=== PATIENT | male | born 1970 | race Two or more races ===

== ENCOUNTER 2020-08-26 12:46 | Inpatient (IN) | payer OTHER ==
[~2020-08-26] VITALS: Ht 170.2 cm; Wt 70.0 kg
[2020-08-26 12:49] VITALS: Ht 170.2 cm; Wt 70.0 kg
[2020-08-26 13:18] LABS: BASOPHIL % 0.5 % (0-2); PLATELET COUNT 232 x10^3mcL (130-400)
--- NOTE | 2020-08-26 13:27 | NUR ---
PT BIB AMBULANCE C/O "FEELING LIKE IM GOING TO PASS OUT" S/P COLONOSCOPY SINCE LAST MONDAY. PER PT "I HAVE BEEN HAVING LOOSE DARK STOOLS SINCE THE COLONSCOPY". PT DENIES ANY PAIN AT THIS TIME. PT AAOX4. RESP E/U. NO DISTRESS NOTED.
--- NOTE | 2020-08-26 13:30 | NUR ---
XR AT BEDSIDE FOR CXR AT THIS TIME.
[2020-08-26 13:32] LABS: RED CELL DISTRIBUTION WIDTH 14.8 % (11.5-14.5)
[2020-08-26 13:51] LABS: CALCIUM 9.3 mg/dL (8.5-10.1); CARBON DIOXIDE 23.7 mmol/L (21-32); CREATININE SERUM 1.7 mg/dL (0.7-1.3); POTASSIUM SERUM 3.4 mmol/L (3.5-5.1)
[2020-08-26 13:53] LABS: ALBUMIN 3.6 g/dL (3.4-5.0); BILIRUBIN TOTAL 0.3 mg/dL (0.20-1.00); TOTAL PROTEIN, SERUM 5.9 g/dL (6.4-8.2); URIC ACID 6.7 mg/dL (3.5-7.2)
--- NOTE | 2020-08-26 14:18 | NUR ---
DR SEBASTIAN AT BEDSIDE
[2020-08-26] MEDS ORDERED: AMARYL4 MG PO (14:21)
[2020-08-26] MEDS ORDERED: LISINOPRIL40 MG PO (14:21)
[2020-08-26] MEDS ORDERED: EFFER-K10 MEQ PO (14:22)
[2020-08-26] MEDS ORDERED: MICROZIDE12.5 MG PO (14:22)
[2020-08-26] MEDS ORDERED: TRIGLIDE160 M1 PO (14:24)
[2020-08-26] MEDS ORDERED: AZOR 10-20 MG1 EACH PO (14:24)
[2020-08-26] MEDS ORDERED: VASCEPA1 GM PO (14:25)
[2020-08-26] MEDS ORDERED: CENTRUM ADULTS1 EACH (14:25)
[2020-08-26] MEDS ORDERED: ECOTRIN81 M2 (14:26)
--- NOTE | 2020-08-26 15:51 | NUR ---
CALLED REPORT TO MADHU SNIDER TELE
--- NOTE | 2020-08-26 15:53 | NUR ---
CONTACTED RESIDENT ON THE CASE, TO ORDER THE COVID ABILIO AND PLACED ADMIT ORDERS, STATES HE WILL BE PUTTING IN THE ORDERS,
[2020-08-26 16:22] LABS: LIPASE 239 IU/L (73-393); MAGNESIUM 2.1 mg/dL (1.8-2.4)
[2020-08-26 16:31] LABS: CHOLESTEROL 209 mg/dL (<200); CHOLESTEROL/HDL RATIO 6.7; HDL CHOLESTEROL 31 mg/dL (40-60); T3 TOTAL 0.8 ng/mL; TRIGLYCERIDES 776 mg/dL (<150)
[2020-08-26 16:54] LABS: FREE T4 0.95 ng/dL (0.76-1.46); FREE THYROXINE INDEX 2.1 ug/dL (1.4-4.5); T4(THYROXINE) 5.9 ug/dL (4.7-13.3)
--- NOTE | 2020-08-26 16:55 | NUR ---
PT LAYING IN BED, AAOX4, NO ACUTE DISTRESS NOTED, DENIES PAIN AT THIS TIME, WILL CONTINUE TO MONITOR. PENDING MAGUI KNOX RESULTS
--- NOTE | 2020-08-26 16:56 | NUR ---
PER LAB MAGUI KNOX RESULTS WILL BE IN TWO MIN
[2020-08-26 17:04] LABS: microscopic required? NO
[2020-08-26 17:19] LABS: urine erythrocyte NEGATIVE (NEGATIVE)
[2020-08-26 17:34] LABS: AMPHETAMINE QUAL UR NONE DETECTED (See below)
--- NOTE | 2020-08-26 17:35 | NUR ---
REC'D PT FROM ED VIA GURNEY ACCOMPANIED BY NURSE. PT ADM WITH CC OF NEAR SYNCOPE AND DIZZINESS. PT AMB FROM GURNEY TO BED BY SELF WITH STEADY GAIT. DENIES DIZZINESS CURRENTLY. AAOX4, SPEECH CLEAR, FOLLOWS COMMANDS. TELE 16. DENIES CP OR PALPITATIONS. DENIES RESP DISTRESS OR SOB. BREATHING EVEN/UNLABORED ON RA. ABD SOFT/FLAT. DENIES ABD PAIN, TENDERNESS, OR N/V. VOIDING FREELY. AMBULATORY. SKIN INTACT. IV TO LFA FLUSHED AND PATENT, SITE WNL. CALL LIGHT WITHIN REACH, BED AT LOWEST POSITION. ORIENTED TO DEVICES AND SURROUNDINGS. REPORT GIVEN TO MADHU SNIDER.
[2020-08-26 17:41] VITALS: BP 132/83
--- NOTE | 2020-08-26 19:19 | NUR ---
PT IN BED AWAKE, ALERT, ABLE TO VERBALIZE NEEDS. IV SITE ON LEFT WRIST WITH NS AT 100CC/HR. ON RA, NO ACUTE RESPIRATORY DISTRESS. DENIES PAIN OR DISCOMFORT AT THIS TIME. ON TELE MONITOR NSR. DENIES HEADACHE OR SYNCOPE. BED RAILS UP X2 FOR SAFETY. CALL LIGHT WITHIN REACH. WILL ENDORSE CARE TO INCOMING RN.
--- NOTE | 2020-08-26 19:40 | NUR ---
RECEIVED PT IN BED AWAKE RESTING COMFORTABLY. A/O X 4, ABLE TO FOLLOW COMMANDS, ABLE TO MAKE NEEDS KNOWN, NO DEL TORO OR DIZZINESS. RESP IS EVEN AND UNLABORED, LUNG SOUND CLR BILATERALLY, SPO2 99% ON RA. RADIAL AND PEDAL PULSES PRESENT, NO EDEMA NOTED. ABD ROUND AND SOFT, DENIES ANY ABDOMINAL PAIN, NO NVD, ADMITS TO HAVING LOOSE BLACK STOOL X1 TODAY WHILE IN ED. ON TELE #16, NO C/O CHEST PAIN. VOIDS FREELY, NO DISCOMFORT REPORTED. SKIN WARM, DRY AND INTACT, IV SITE TO THE LW PATENT AND FLUSHING WELL. PT ABLE TO AMBULATE INDEPENDENTLY. BED TO LOWEST POSITION, CALL LIGHT WITHIN REACH, WILL CONT TO MONIOTR FOR CHANGES IN CONDITION.
--- NOTE | 2020-08-26 20:53 | NUR ---
HYDROCHLOROTHIAZIDE PO HELD BP 99/65, DR CAREY MADE AWARE AND REQUESTED TO ADD PARAMETER ORDER.
[2020-08-26 21:20] VITALS: BP 99/65
--- NOTE | 2020-08-26 23:26 | NUR ---
PT REMAINED IN BED RESTING COMFORTABLY WITH EYES CLOSED. NO C/O PAIN, NO ACUTE DISTRESS NOTED.RESP IS EVEN AND UNLABORED,. PROVIDE FREQUENT VISUAL MONITORING. BED TO LOWEST POSITION, CALL LIGHT WITHIN REACH, WILL CONT TO MONITOR FOR CHANGE SIN CONDITION.
[2020-08-27 05:09] VITALS: BP 106/67
--- NOTE | 2020-08-27 06:12 | NUR ---
PT IN BED AWAKE RESTING COMFORTABLY, NO C/O PAIN, NO ACUTE DISTRESS NOTED. RESP IS EVEN AND UNLABORED, NEEDS ATTENDED AND MET. FREQUENT VISUAL MONITORING RENDERED. DENIES ANY ABDOMINAL PAIN, NO C/O NVD. REPORTED HASNT HAD EPISODE OF LOOSE BLACK STOOL SINCE IN ED.CALL BED TO LOWEST POSITION, CALL LIGHT WITHIN REACH, WILL CONT TO MONITOR FOR CHANGES IN CONDITION AND ENDORSE TO NEXT SHIFT NURSE.
--- NOTE | 2020-08-27 07:20 | NUR ---
RECEIVED PT IN BED AWAKE, ALERT, ABLE TO VERBALIZE NEEDS. ON RA, NO ACUTE RESPIRATORY DISTRESS. DENIES PAIN OR DISCOMFORT AT THIS TIME. ON TELE 16 NSR. IV SITE TO LW WITH NS AT 100CC/HR. NO QUESTIONS OR CONCERN AT THIS TIME. BED IN LOWEST POSITION. CALL LIGHT WITHIN REACH WILL CONTINUE TO MONITOR.
[2020-08-27 07:56] VITALS: BP 124/86
[2020-08-27 11:44] VITALS: BP 128/83
[2020-08-27 16:11] VITALS: BP 113/74
[2020-08-27 16:52] LABS: CALCIUM 8.4 mg/dL (8.5-10.1); CARBON DIOXIDE 25.5 mmol/L (21-32); CREATININE SERUM 1.5 mg/dL (0.7-1.3); POTASSIUM SERUM 3.4 mmol/L (3.5-5.1)
--- NOTE | 2020-08-27 17:00 | NUR ---
EGD CONSENT SIGNED BY PATIENT. PATIENT WAS SEEN BY AND PROCEDURE WAS EXPLAINED TO THE PATIENT. ALL QUESTION AND CONCERN ADDRESSED BY DR.SHAW DUNBAR. NO FURTHER QUESTION AT THIS TIME
[2020-08-27 17:07] LABS: BASOPHIL % 0.3 % (0-2); PLATELET COUNT 225 x10^3mcL (130-400)
[2020-08-27 17:08] LABS: RED CELL DISTRIBUTION WIDTH 14.8 % (11.5-14.5)
--- NOTE | 2020-08-27 19:17 | NUR ---
PT IN RESTROOM AT THE CHANGE OF SHIFT. VERBALLY RESPONSIVE. ON RA, NO ACUTE RESPIRATORY DISTRESS. DENIES PAIN OR DISCOMFORT AT THIS TIME. ON TELE 16 NSR. IV SITE TO LW WITH NS WITH KCL 40MEQ AT 100CC/HR. NPO STATUS FOR TOMORROW'S PROCEDURE. NO QUESTIONS OR CONCERN AT THIS TIME. INSTRUCTED TO USE CALL LIGHT WHEN NEEDED ASSISTANCE. ENDORSED TO NIGHT RN.
--- NOTE | 2020-08-27 19:40 | NUR ---
RECEIVED PT IN BED, AWAKE RESTING COMFORTABLY WITH EYES CLOSED. A/O X4, ABLE TO MAKE NEEDS KNOWN, ABLE TO FOLLOW COMMANDS, SPEECH IS CLR, NO C/O DEL TORO OR DIZZINESS. LUNGS SOUNDS CLR BILATERALLY, RESP IS EVEN AND UNLABORED, SPO2 99% ON RA. RADIAL AND PEDAL PULSES PRESENT, NO EDEMA NOTED. ON TEL # 16, NO C/O CHEST PAIN AT THIS TIME. ABD IS ROUND AND SOFT, ACTIVE BS PRESENT X4 QUADRANTS, DENIES DISCOMFORT, NO NVD. SKIN IS WARM, DRY AND INTACT, IV SITE TO THE LW PATENT AND FLUSHING WELL CONNECTED WITH NS W KCL AT 100ML/HR, SCHEDULED EGD FOR TOMMOROW AM, PER REPORT BOWEL PREP HAS BEEN STARTED. VOIDS FREELY, NOR DISCOMFORT REPORTED. BED TO LOWEST POSITION, CALL LIGHT WITHIN EASY REACH. WILL CONT TO MONIOTR FOR CHANGES IN CONDITION.
[2020-08-27 20:42] VITALS: BP 142/54
--- NOTE | 2020-08-28 01:13 | NUR ---
PT IN BED RESTING COMFORTABLY WITH EYES CLOSED. NO C/O PAIN, NO ACUTE DISTRESS NOTED. RESP IS EVEN AND UNLABORED. CONT TO PROVIDE FRQUENT VISUAL MONITORING RENDERED. BED TO LOWEST POSITION, CALL LIGHT WITHIN REACH WILL CONT TO MONITOR FOR CHANGES IN CONDITION.
[2020-08-28 05:35] VITALS: BP 106/69
--- NOTE | 2020-08-28 06:24 | NUR ---
PT AWAKE RESTING COMFORTABLY IN BED. NO C/OPAIN, NO ACUTE DISTRESS NOTED. RESP IS EVEN AND UNLABORED NEEDS ATTENDED AND MET. FREQUENT VISUAL MONITORING RENDERED. PT FOR EGD TODAY AT 1000, ORDERED BOWEL PREP COMPLETED. BED TO LOWEST POSITION, CALL LIGHT WITHIN REACH. WILL CONT TO MONITOR FOR CHANGES IN CONDITION AND ENDORSE TO NEXT SHIFT NURSE.
[2020-08-28 07:18] LABS: CALCIUM 8.6 mg/dL (8.5-10.1); CARBON DIOXIDE 26.9 mmol/L (21-32); CREATININE SERUM 1.4 mg/dL (0.7-1.3); MAGNESIUM 2.1 mg/dL (1.8-2.4); PHOSPHOROUS 2.2 mg/dL (2.5-4.9); POTASSIUM SERUM 4.6 mmol/L (3.5-5.1)
[2020-08-28 07:23] LABS: BASOPHIL % 0.4 % (0-2); PLATELET COUNT 234 x10^3mcL (130-400)
[2020-08-28 07:39] LABS: RED CELL DISTRIBUTION WIDTH 15.6 % (11.5-14.5)
--- NOTE | 2020-08-28 07:56 | NUR ---
O/R CALLED, GAVE REPORT TO AGATHA EDWARDS. PT SCHEDULED FOR EGD THIS MORNING AT 10 AM. PT IS AAOX4. TELE [address] READING S/T HR 104. DENIES C/P AND PRESSURE. LUNG SOUNDS CTA. ON R/A. NO COUGH OR SOB NOTED. BOWEL SOUNDS ACTIVE X 4 QUADS. PT S/P BOWEL PREP WITH LIGHT BROWN WATERY STOOL. IVF RUNNING TO LW, NO S/S OF INFECTION OR INFILTRATION, PATENT, CDI. DENIES PAIN. CALL LIGHT WITHIN REACH. BED IN LOWEST POSITION.
--- NOTE | 2020-08-28 08:25 | NUR ---
NORILENE, RADHA AND AIRAOT HELP. PT NPO FOR 1000 PROCEDURE. FERRLECIT IVBP AND PROTONIX GIVEN AND TOLERATED WELL. REIFORCED POST OP TEACHING. PT VERBALIZED UNDERSTANDING.
--- NOTE | 2020-08-28 08:56 | NUR ---
TELEMONITOR REMOVED. PT TAKEN FOR EGD AND COLONOSCOPY. NURSE PRN MADE AWARE.
[2020-08-28 08:59] VITALS: BP 122/85
--- NOTE | 2020-08-28 11:50 | NUR ---
PT RETURNED FOR EGD AND COLONOSCOPY. VS WNL. PT SITTING UP AT BEDSIDE. VS WNL. WILL CONTINUE TO MONITOR.
--- NOTE | 2020-08-28 12:14 | NUR ---
BLOOD SUGAR 151, 3 UNITS REG INSULIN SQ GIVEN TO R UPPER ARM. SITE WNL. DENIES PAIN, N/V, DIARRHEA. WILL CONTINUE TO MONITOR.
[2020-08-28 12:50] VITALS: BP 109/75
[2020-08-28 15:37] VITALS: BP 110/79
[2020-08-28] MEDS ORDERED: FER300 PO (16:41)
[2020-08-28] MEDS ORDERED: PEPCID AC10 M2 PO (16:43)
[2020-08-28 17:21] VITALS: BP 110/79
--- NOTE | 2020-08-28 17:50 | NUR ---
BLOOD SUGAR 263, 9 UNITS REG INSULIN SQ GIVEN TO OLVIN. SITE WNL. DENIES PAIN.
--- NOTE | 2020-08-28 18:20 | NUR ---
PT DISCHARGED TO HOME IN NO DISTRESS. DISCHARGE INSTRUCTIONS REVIEWED. ALL QUESTIONS AND CONCERNS ADDRESSED. PT GIVEN RX. TELE 16 REMOVED FROM PT AND RETURNED TO GIFT SHOP MANAGER. IV CATH TO L WRIST REMOVED INTACT. SITE WNL. COVERED WITH CDI DRESSING. ALL PERSONAL BELONGINGS TAKEN WITH PT. DENIES PAIN. PT WALKED TO LOBBY ACCOMPAINED BY THIS RN.
== END 2020-08-28 18:15 | disposition home or self-care (01) | DRG 377 ==
LOC: ED 12:46 → DU 14:29
PROVIDERS: Emergency Medicine; Internal Medicine Gastroenterology; ADMIT Family Medicine; ATTEND Family Medicine
PROC: 0DJ08ZZ Inspection of Upper Intestinal Tract, Via Natural or Artificial Opening Endoscopic (ICD-10-PCS; principal; 2020-08-28 10:00)
PROC: 0DBN8ZZ Excision of Sigmoid Colon, Via Natural or Artificial Opening Endoscopic (ICD-10-PCS; 2020-08-28 10:00)
DX: K92.2 Gastrointestinal hemorrhage, unspecified (principal); N17.0 Acute kidney failure with tubular necrosis; Z94.81 Bone marrow transplant status; Q85.8 Other phakomatoses, not elsewhere classified; K31.7 Polyp of stomach and duodenum; Z20.828 Contact with and (suspected) exposure to other viral communicable diseases; D64.9 Anemia, unspecified; E78.5 Hyperlipidemia, unspecified; E11.65 Type 2 diabetes mellitus with hyperglycemia; E78.00 Pure hypercholesterolemia, unspecified; Z88.0 Allergy status to penicillin; Z85.6 Personal history of leukemia; Z79.899 Other long term (current) drug therapy; Z79.891 Long term (current) use of opiate analgesic; Z79.82 Long term (current) use of aspirin; Z88.1 Allergy status to other antibiotic agents; Z83.3 Family history of diabetes mellitus; Z80.0 Family history of malignant neoplasm of digestive organs; Z84.89 Family history of other specified conditions
CPT/HCPCS: 43235; 45378; 82962; 83880; 84439; 90658; 90732; C9113; G0378; J1200; J1610; J2250; J2310; J2916; J3010; J3480; J3490; J7030; J7050; Q0092